=== PATIENT | male | born 1930 | race Caucasian/White ===

== ENCOUNTER 2017-04-05 12:37 | Inpatient (IN) ==
--- NOTE | 2017-04-05 13:01 | Emergency Department Note ---
Disposition Clinical Impression: UTI (urinary tract infection), Fever, Dizziness Disposition: Admitted As Inpatient Condition: Fair Referrals: Margaret Dumont MD [Primary Care Provider] - Time of Disposition: 15:14 Dizziness HPI - General Stated Complaint: Light Headed, Dizzy Time Seen by Provider: 04/05/17 12:52 Source: patient, family Mode of arrival: ambulatory Limitations: no limitations, age Nursing Notes Reviewed: Yes Vital Signs Reviewed: Yes - History of Present Illness HPI Narrative: Patient did not sleep very well also has been having fever chills aches all over patient states that he has had some dizziness today denies any blurred vision double vision denies any chest pain or chest pressure denies any wheezing he said normally he has respiratory problems but he says he does not feel like that states he has had no cough no congestion no numbness no tingling no weakness he just states that when he changes position. [place] denies diarrhea melena hematochezia or hematemesis does feel like his heart is racing Pt Subjective Complaint: dizziness Onset (ago): day(s) (1) Timing: gradual onset Description: "room spinning" History of similar episodes: No History of trauma: No Severity: mild Improves with: remaining still Worsens with: movement Associated symptoms: Reports: fever, chills, weakness, palpitations. Denies: ataxia, chest pain, confusion, diaphoresis, malaise, rash, shortness of breath, syncope, vision changes, nausea, vomiting - Related Data Home Medications Medication Instructions Recorded Confirmed Aspirin Enteric Coated [Aspirin EC] 81 mg PO DAILY 04/30/15 02/05/17 Simvastatin [Zocor] 40 mg PO HS 04/30/15 02/05/17 Albuterol Neb [Proventil Neb] 2.5 mg IH Q4HR PRN 04/05/17 04/05/17 Ipratropium/Albuterol Neb [Duoneb] 3 ml IH TID 04/05/17 04/05/17 Allergies Allergy/AdvReac Type Severity Reaction Status Date / Time No Known Allergies Allergy Verified 07/28/16 11:03 All systems ED: reviewed and negative except as stated. Review of Systems: As Per HPI Constitutional: Reports: fever, chills, weakness Eyes: Denies: eye pain ENT ED: Denies: ear pain, throat pain Cardiovascular: Denies: chest pain, palpitations Respiratory: Denies: cough, dyspnea, wheezes Gastrointestinal: Denies: abdominal pain, nausea, vomiting Genitourinary: Denies: urgency, dysuria, frequency Musculoskeletal: Denies: back pain Integumentary: Denies: rash, abrasion Neurological: Reports: weakness, vertigo. Denies: headache Psychiatric: Denies: anxiety Endocrine: Denies: fatigue Hematological/Lymphatic: Denies: easy bleeding Allergic/Immunologic: Denies: facial swelling Past Medical History - Past Medical History Attestation: Yes The following information was validated with the patient. 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), COPD, hyperlipidemia Psychiatric history: Reports: no psych history - Social History Smoking Status: Current every day smoker Smokeless Tobacco Status: No (PT HAS SMOKED X70 YEARS) Alcohol use: Reports: none Drug use: Reports: none Physical Exam - General Limitations: no limitations General appearance: alert, in no apparent distress, other (appears to be chilling) - Head Head exam: atraumatic, normocephalic, normal inspection - Eye Eye exam: Present: normal appearance, PERRL, EOMI - ENT ENT exam: normal exam, normal oropharynx, mucous membranes moist - Neck Neck exam: Present: normal inspection, full ROM, trachea midline - Chest Chest inspection: Present: normal inspection, symmetric chest wall rise - Respiratory Respiratory exam: Present: normal lung sounds bilaterally - Cardiovascular Cardiovascular exam: Present: regular rate, normal rhythm, normal heart sounds - Abdominal Exam Abdominal exam: Present: soft, Non-Tender, normal bowel sounds. Absent: mass, pulsatile mass - Expanded Upper Extremity Exam Shoulder exam: Present: normal inspection, full ROM Arm exam: Present: normal inspection, full ROM Elbow exam: Present: normal inspection, full ROM Forearm/Wrist exam: Present: normal inspection, full ROM Hand exam: Present: normal inspection, full ROM Neurosensory exam: Normal: radial nerve, ulnar nerve, median nerve Vascular exam: Normal: capillary refill, radial pulse, ulnar pulse - Expanded Lower Extremity Exam Hip/Pelvis exam: Present: normal inspection, full ROM Upper leg exam: Present: normal inspection, full ROM Knee exam: Present: normal inspection, full ROM Lower leg exam: Present: normal inspection, full ROM Ankle exam: Present: normal inspection, full ROM Foot/toe exam: Present: normal inspection, full ROM Neurovascular/Tendon exam: Present: normal capillary refill, normal fine/light touch. Absent: motor deficit, sensory deficit, tendon deficit Gait: observed and normal - Back Exam Back exam: Present: normal inspection, full ROM. Absent: muscle spasm - Neurological Exam Neurological exam: Present: alert, oriented X3, CN II-XII intact - Psychiatric Psychiatric exam: Present: normal affect, normal mood - Skin Skin exam: Present: warm, dry, intact, normal color Course Course Narrative: Patient was seen and examined the patient had laboratory data workup for vertiginous-type presentation but during the workup appears he has something viral in etiology urinalysis shows [place] underlying UTI recommend admission awaiting discussion with hospitalist for admission - Reevaluation(s) Reevaluation #1: Local doctor Ingrid in regards to the findings we will go ahead and treat him patient is admitted we will place him on telemetry and also place him on Levaquin Dizziness - MDM Narrative Medical decision making narrative: Sepsis infection bacterial versus viral pulmonary versus genitourinary versus gastrointestinal - Differential Diagnosis Likely: vertebral basilar insufficiency - Medical Records Medical records reviewed: Yes I reviewed the patient's medical records. - Lab Data Lab results reviewed: Yes I reviewed the patient's lab results. - Radiology Data Radiology results reviewed: Yes I reviewed the patient's radiology results. ITS Impressions Chest X-Ray 04/05/17 12:53 IMPRESSION: Advanced COPD and chronic interstitial change with no acute finding. D/ / Lazaro Calhoun MD / Lazaro Calhoun MD Interpreting Provider: Lazaro Calhoun MD Head CT 04/05/17 12:53 IMPRESSION: No acute intracranial abnormality. D/ / Lazaro Calhoun MD / Lazaro Calhoun MD Interpreting Provider: Lazaro Calhoun MD - EKG Data EKG attestation: Yes I reviewed and interpreted this EKG. EKG results narrative: Sinus tach incomplete bundle branch rate 118 MA 156 QRS 98 QT to 98 axis -75 Critical Care Time Critical Care Time: Yes Total Critical Care Time: 35 Attestation: Critical care performed:20mins due to heartrate fever and dizziness to r/ ocvaandsepsis discussion with family and hospitalist for admission Dr Dumont Time is exclusive of separately billable procedures. Time includes: direct patient care, patient reassessment, coordination of patient care, interpretation of data (laboratory data, radiology data, and respiratory data), review of patient's medical records, medical consultation and documentation of patient care. Procedures included in critical care time: Procedures excluded from critical care time:
[2017-04-05 13:38] LABS: Basophils % 0.2 %; Eosinophils % 0.5 %; Hematocrit 35.4 % (37.5-50.1); Hemoglobin 12.4 g/dL (12.9-16.9); Immature Granulocytes % 1.2 % (0-4); Lymphocytes # 0.9 K/mcL (0.6-4.6); Lymphocytes % 20.9 %; Mean Corpuscular Hemoglobin 36.2 pg (28.0-33.3); Mean Corpuscular Volume 103.2 fL (83.0-100.0); Mean Platelet Volume 9.2 fL (9.4-12.4); Monocytes # 0.2 K/mcL (0.0-1.3); Monocytes % 5.6 %; Neutrophils # 3.1 K/mcL (1.6-8.9); Red Blood Count 3.43 M/mcL (4.19-5.50); Red Cell Distribution Width 14.2 % (11.5-14.5); Segmented Neutrophils % 71.6 %
[2017-04-05 13:44] LABS: Platelet Count 83 K/mcL (140-400)
[2017-04-05 13:53] LABS: INR 1.1; Platelet Estimate Decreased (Normal); Prothrombin Time 11.6 Seconds (9.4-12.1); Reactive Lymphocytes Present (Not Present)
[2017-04-05 13:54] LABS: BUN/Creatinine Ratio 14 (6-26); Blood Urea Nitrogen 17 mg/dL (8-26); Calcium 9.5 mg/dL (8.6-10.8); Carbon Dioxide 23 mEq/L (19-29); Chloride 104 mEq/L (98-109); Glucose 98 mg/dL (70-99); Osmolality,Calculated 286 (280-300); Potassium 4.5 mEq/L (3.5-4.5); Sodium 137 mEq/L (136-145); eGFR For African Americans > 60 (> 60); eGFR For Non-African Americans 58 (> 60)
[2017-04-05 13:55] LABS: Activated Partial Thrombo Time 29.3 Seconds (26.0-36.0)
[2017-04-05 14:34] LABS: Bilirubin,Urine Negative (Negative); Blood,Urine Trace-intact (Negative); Clarity,Urine Clear (Clear); Color,Urine Yellow (Yellow); Glucose,Urine (UA) Normal (Normal); Ketones,Urine Trace mg/dL (Negative); Leukocyte Esterase,Urine Trace (Negative); Nitrite,Urine Negative (Negative); PH,Urine 6.5 pH Units (5.0-8.0); Protein,Urine Trace mg/dL (Neg-Trace); Urobilinogen,Urine Normal (Normal)
[2017-04-05 15:14] LABS: Bacteria,Urine Few per hpf (None-Few); RBC,Urine 0-3 per hpf (0-3); Squamous Epithelial Cell,Urine Few per lpf (None-Few); WBC,Urine 0-3 per hpf (0-3)
[2017-04-05] MEDS ORDERED: Acetaminophen 325 MG TABLET PO ONE (15:14)
[2017-04-05] MEDS ORDERED: Ibuprofen 400 MG TABLET PO PRN (17:30)
[2017-04-05] MEDS ORDERED: 0.9 % Sodium Chloride 1,000 ML IVC SCH (17:30)
[2017-04-05] MEDS ORDERED: Naloxone 0.4 MG/ML INJ IVP PRN (17:30)
[2017-04-05] MEDS ORDERED: Albuterol 2.5 MG/3 ML NEBULIZER IH PRN (17:30)
[2017-04-05] MEDS: Levofloxacin 500 MG/100 ML 500 MG/100 ML BAG IVPB SCH (18:05)
--- NOTE | 2017-04-05 18:10 | Internal Med History&Physical ---
Date of Encounter: 04/06/17 Time of Encounter: 19:42 Assessment and Plan (1) UTI (urinary tract infection) Current visit: Yes Status: Acute levaquin, ivf, urine cultures and blood cultures Qualifiers: Urinary tract infection type: acute cystitis Hematuria presence: with hematuria Qualified Code(s): N30.01 - Acute cystitis with hematuria (2) Thrombocytopenia Current visit: Yes Status: Acute will follow no active bleeding will repeat in am (3) Vitamin D deficiency Current visit: Yes Status: Acute will repeat with am labs. he has not been seen in the office since 12/2015 (4) Macular degeneration Current visit: Yes Status: Acute (5) Osteoporosis Current visit: Yes Status: Acute Qualifiers: Osteoporosis type: unspecified Presence of current pathological fracture: without current pathological fracture Qualified Code(s): M81.0 - Age-related osteoporosis without current pathological fracture (6) Laryngeal cancer Current visit: No Status: Resolved in the past not an active problem (7) Cancer of left lung Current visit: No Status: Chronic s/p chemo and radiation. not active problem Qualifiers: Lung location: unspecified part of lung Qualified Code(s): C34.92 - Malignant neoplasm of unspecified part of left bronchus or lung (8) Smoker Current visit: Yes Status: Acute cessation discussed (9) COPD (chronic obstructive pulmonary disease) Current visit: No Status: Acute he has not taken his nebs in a while. he has home oxygen. will watch. smoking cessation would be beneficial to him discussed. He may benefit from steroids. He always has a prolonged expiratory phase and some wheezing but it is more pronounced today. Qualifiers: COPD type: unspecified COPD Qualified Code(s): J44.9 - Chronic obstructive pulmonary disease, unspecified (10) Fever Current visit: Yes Status: Acute likely due to the uti. await urine culture, levaquin Qualifiers: Fever type: unspecified Qualified Code(s): R50.9 - Fever, unspecified (11) Dizziness Current visit: Yes Status: Acute likely due to uti. will give ivf (12) DVT prophylaxis Current visit: Yes Status: Acute He is thrombocytopenic put in [place] hose. (13) Hypotension Current visit: Yes Status: Acute Blood cultures urine cultures are pending he is on Levaquin give IV fluid bolus. Continue IV fluids he is not on any blood pressure pills.discussed with him and his code status. he does not want intubation or cpr. discussed transfer to [place] with his tachycardia and hypotension he wants to stay here Qualifiers: Hypotension type: unspecified hypotension type Qualified Code(s): I95.9 - Hypotension, unspecified Internal Medicine - H&P: HPI Chief complaint: dizzy weak chills Admitted From: Home Plans for Post Hospital Care: Home History of present illness: Mr. Garces is a 87 year old male Who was admitted from home. He came into the emergency room 2 day history of fevers chills and off balance. 2 days ago he had some pain in his lower suprapubic area that has since resolved. He has been nauseated but has not had any emesis has not been eating or drinking well he also noted that he had double vision in his left eye that started 2 days ago. He is short of breath but he is always short of breath for the past year he has been coughing he has been coughing for the past year he has white sputum and that has been going on for the past year. 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.) - Social History Smoking Status: Current every day smoker Packs per day: 0.5 Smokeless Tobacco Status: No (PT HAS SMOKED X70 YEARS) Alcohol use: none Drug use: none - Family History Father Living Status: Hx Family Respiratory Disorders: Yes (copd) Mother Living Status: Age at : 100 Cause of : old age Brother Living Status: Hx Family Cardiac Disorders: Yes Internal Medicine - H&P: Meds Aspirin Enteric Coated [Aspirin EC] 81 mg PO DAILY 04/30/15 [History] Simvastatin [Zocor] 40 mg PO HS 04/30/15 [History] Albuterol Neb [Proventil Neb] 2.5 mg IH Q4HR PRN 04/05/17 [History] Ipratropium/Albuterol Neb [Duoneb] 3 ml IH TID 04/05/17 [History] 3 Allergy/AdvReac Type Severity Reaction Status Date / Time No Known Allergies Allergy Verified 07/28/16 11:03 All Systems PM: A 10-system review of systems was performed and is negative for pertinent findings except as documented above in the HPI. - Constitutional Constitutional: anorexia, chills, fatigue, fever(s), malaise, weakness ( Generalized) - EENT Eyes: diplopia (Left eye when he was looking at the television 2 nights ago) Nose, mouth and throat: no sore throat - Cardiovascular Cardiovascular ROS IM: lightheadedness, no chest pain, no palpitations - Respiratory Respiratory: cough (For over a year), dyspnea (For over a year), wheezing (For over a year), excessive phlegm production (White for over a year), no change in phlegm color - Gastrointestinal Gastrointestinal: abdominal pain (As per history of present illness), nausea, no change in bowel habits, no constipation (He has a normal stool daily), no diarrhea, no hematochezia, no melena, no vomiting - Genitourinary Genitourinary ROS male: no dysuria, no hematuria, no urinary frequency, no urinary incontinence, no urinary urgency - Musculoskeletal Musculoskeletal ROS IM: no myalgias, no numbness - Integumentary Integumentary IM: no pruritus, no rash - Neurological Neurological ROS: dizziness, no focal weakness, no frequent falls, no headache(s ), no numbness, no tingling - Constitutional Vitals: Temp Pulse Resp BP Pulse Ox 98.5 F 104 16 94/61 97 04/05/17 18:00 04/05/17 18:00 04/05/17 18:00 04/05/17 18:00 04/05/17 18:00 General appearance: Present: A&O X 3, pleasant, no acute distress, answers questions appropriately - Head Head exam: Present: atraumatic, normocephalic - Eye Eye exam: Present: EOMI, PERRL. Absent: nystagmus - Neck Neck exam general surgery: Present: supple, trachea midline - Respiratory Respiratory exam: Present: decreased breath sounds, prolonged expiratory phase, wheezes. Absent: accessory muscle use - Cardiovascular Cardiovascular exam: Present: tachycardia - GI/Abdominal GI/Abdominal exam: Present: soft, no peritoneal signs. Absent: distended, guarding, rebound, tenderness - Extremities Exam Extremities exam: Present: normal capillary refill, warm. Absent: mottling, pedal edema - Neurological Exam Neurological exam: Present: strengths equal and symetr throughout. Absent: facial droop, speech deficit (but hoarse, chronic) - Skin Skin exam: Present: dry, warm. Absent: erythema, rash Internal Med - H&P Results - Labs CBC & Chem 7: 04/06/17 05:20 04/06/17 05:20
--- NOTE | 2017-04-05 18:11 | Electrocardiograph Report ---
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
[2017-04-05] MEDS: Ipratropium/Albuterol Neb 3 ML IH SCH (18:13)
[2017-04-05] MEDS ORDERED: 0.9 % Sodium Chloride 1,000 ML IVC ONE ×3 (19:15→21:53)
[2017-04-05 20:03] LABS: Thyroid Stimulating Hormone 1.062 mcIU/mL (0.350-4.840)
[2017-04-05] MEDS: methylPREDNISolone 125 MG/2 ML VIAL IVP SCH (23:18)
[2017-04-05] MEDS: 0.9 % Sodium Chloride 1,000 ML IVC SCH (23:43)
[2017-04-06] MEDS: Ipratropium/Albuterol Neb 3 ML IH SCH ×3 (01:27→18:45)
[2017-04-06 05:39] LABS: Hematocrit 28.9 % (37.5-50.1); Immature Granulocytes % 1.2 % (0-4); Lymphocytes # 0.4 K/mcL (0.6-4.6); Mean Corpuscular HGB Conc 34.6 g/dL (31.6-35.5); Mean Corpuscular Hemoglobin 36.4 pg (28.0-33.3); Mean Corpuscular Volume 105.1 fL (83.0-100.0); Monocytes # 0.1 K/mcL (0.0-1.3); Monocytes % 1.5 %; Nucleated Red Blood Cells 0.6 /100 WBC (0); Red Blood Count 2.75 M/mcL (4.19-5.50); Red Cell Distribution Width 14.4 % (11.5-14.5); Segmented Neutrophils % 85.3 %
[2017-04-06 05:42] LABS: Neutrophils # 2.7 K/mcL (1.6-8.9); Platelet Count 61 K/mcL (140-400)
[2017-04-06 05:44] LABS: Platelet Estimate Slight Decrease (Normal)
[2017-04-06 05:49] LABS: BUN/Creatinine Ratio 17 (6-26); Blood Urea Nitrogen 18 mg/dL (8-26); Calcium 8.1 mg/dL (8.6-10.8); Carbon Dioxide 16 mEq/L (19-29); Chloride 111 mEq/L (98-109); Glucose 134 mg/dL (70-99); Osmolality,Calculated 286 (280-300); Potassium 4.5 mEq/L (3.5-4.5); Sodium 136 mEq/L (136-145); eGFR For African Americans > 60 (> 60); eGFR For Non-African Americans > 60 (> 60)
[2017-04-06] MEDS: 0.9 % Sodium Chloride 1,000 ML IVC SCH ×3 (06:31→21:31)
[2017-04-06] MEDS: Aspirin Enteric Coated 81 MG Tablet PO SCH (08:08)
[2017-04-06] MEDS: methylPREDNISolone 125 MG/2 ML VIAL IVP SCH ×3 (08:08→23:37)
--- NOTE | 2017-04-06 11:05 | Internal Med Progress Note ---
Date of Encounter: 04/06/17 Time of Encounter: 11:05 - Assessment and plan (1) UTI (urinary tract infection) Current Visit: Yes Status: Acute Assessment and plan: on levaquin blood and urine culutres pending. had fever Qualifiers: Urinary tract infection type: acute cystitis Hematuria presence: with hematuria Qualified Code(s): N30.01 - Acute cystitis with hematuria (2) Thrombocytopenia Current Visit: Yes Status: Acute Assessment and plan: decreased again today will continue to follow no active bleeding (3) Vitamin D deficiency Current Visit: Yes Status: Acute (4) Macular degeneration Current Visit: Yes Status: Acute (5) Osteoporosis Current Visit: Yes Status: Acute Qualifiers: Osteoporosis type: unspecified Presence of current pathological fracture: without current pathological fracture Qualified Code(s): M81.0 - Age-related osteoporosis without current pathological fracture (6) Laryngeal cancer Current Visit: No Status: Resolved Assessment and plan: not active this admission (7) Cancer of left lung Current Visit: No Status: Chronic Assessment and plan: not active problem this admission Qualifiers: Lung location: unspecified part of lung Qualified Code(s): C34.92 - Malignant neoplasm of unspecified part of left bronchus or lung (8) Smoker Current Visit: Yes Status: Acute Assessment and plan: cessation discussed (9) COPD (chronic obstructive pulmonary disease) Current Visit: No Status: Acute Assessment and plan: he is on oxygen, solumedrol, duonbebs, levaquin Qualifiers: COPD type: unspecified COPD Qualified Code(s): J44.9 - Chronic obstructive pulmonary disease, unspecified (10) Fever Current Visit: Yes Status: Acute Assessment and plan: likely due to uti. on levaquin cultures pending Qualifiers: Fever type: unspecified Qualified Code(s): R50.9 - Fever, unspecified (11) Dizziness Current Visit: Yes Status: Acute Assessment and plan: improving with the ivf (12) DVT prophylaxis Current Visit: Yes Status: Acute Assessment and plan: devin hose and ambulation since he has thrombocytopenia (13) Hypotension Current Visit: Yes Status: Acute Assessment and plan: better with the ivf Qualifiers: Hypotension type: unspecified hypotension type Qualified Code(s): I95.9 - Hypotension, unspecified - Subjective Interval history: he got hypotensive last night. he had 2 liter bolus. and then 150 mg /hour. his bp is up but his heart will get high still. he feels better, less dizzy. heart does not feel like it is racing. no chest pain. he is sob but always is sob. no abd pain, no nausea. he ate breakfast. he is tired and weak. no pain - Constitutional Vitals: Temp Pulse Resp BP Pulse Ox 98.4 F 90 16 124/74 94 04/06/17 07:00 04/06/17 07:00 04/06/17 07:00 04/06/17 07:00 04/06/17 07:00 General appearance: Present: A&O X 3, pleasant, no acute distress, answers questions appropriately - Head Head exam: Present: atraumatic, normocephalic - Neck Neck exam general surgery: Present: supple, trachea midline. Absent: lymphadenopathy, tenderness - Respiratory Respiratory exam: Present: decreased breath sounds (at bases), wheezes (but improved from yesterday) - Cardiovascular Cardiovascular exam: Present: tachycardia - GI/Abdominal GI/Abdominal exam: Present: normal bowel sounds, soft, no peritoneal signs. Absent: guarding, mass, rebound, tenderness - Extremities Exam Extremities exam: Present: normal capillary refill. Absent: mottling, pedal edema - Skin Skin exam: Present: dry, warm Internal Medicine: Result - Labs CBC & Chem 7: 04/06/17 05:20 04/06/17 05:20 Labs: Short CBC 04/06/17 Range/Units 05:20 WBC 3.2 L (4.3-11.1) K/mcL Hgb 10.0 L D (12.9-16.9) g/dL Hct 28.9 L (37.5-50.1) % Plt Count 61 L (140-400) K/mcL Neutrophils # 2.7 (1.6-8.9) K/mcL BMP 04/06/17 05:20 Sodium 136 Potassium 4.5 Chloride 111 H Carbon Dioxide 16 L BUN 18 Creatinine 1.03 Glucose 134 H Calcium 8.1 L - ABG Interpretation ABG results: PT/INR, D-dimer PT 11.6 Seconds (9.4-12.1) 04/05/17 13:25 - VTE Documentation of Mechanical Device: Graduated compression elastic hosiery Consult Discharge Plan - Plan Referrals: Margaret Dumont MD [Primary Care Provider] -
[2017-04-06] MEDS: Acetaminophen 325 MG TABLET PO PRN (15:15)
[2017-04-06] MEDS: Levofloxacin 500 MG/100 ML 500 MG/100 ML BAG IVPB SCH (16:42)
[2017-04-07 01:21] LABS: Basophils % 0.1 %; Hematocrit 32.3 % (37.5-50.1); Hemoglobin 11.1 g/dL (12.9-16.9); Immature Granulocytes % 1.2 % (0-4); Lymphocytes # 0.5 K/mcL (0.6-4.6); Lymphocytes % 6.2 %; Mean Corpuscular HGB Conc 34.4 g/dL (31.6-35.5); Mean Corpuscular Hemoglobin 35.6 pg (28.0-33.3); Mean Corpuscular Volume 103.5 fL (83.0-100.0); Mean Platelet Volume 9.7 fL (9.4-12.4); Monocytes # 0.2 K/mcL (0.0-1.3); Monocytes % 2.2 %; Neutrophils # 7.2 K/mcL (1.6-8.9); Red Blood Count 3.12 M/mcL (4.19-5.50); Red Cell Distribution Width 14.5 % (11.5-14.5); Segmented Neutrophils % 90.3 %
[2017-04-07 01:22] LABS: Platelet Count 59 K/mcL (140-400)
[2017-04-07 01:23] LABS: Platelet Estimate Slight Decrease (Normal)
[2017-04-07 01:35] LABS: BUN/Creatinine Ratio 23 (6-26); Blood Urea Nitrogen 22 mg/dL (8-26); Calcium 8.5 mg/dL (8.6-10.8); Carbon Dioxide 17 mEq/L (19-29); Chloride 110 mEq/L (98-109); Glucose 144 mg/dL (70-99); Osmolality,Calculated 292 (280-300); Potassium 4.3 mEq/L (3.5-4.5); Sodium 138 mEq/L (136-145); eGFR For African Americans > 60 (> 60); eGFR For Non-African Americans > 60 (> 60)
[2017-04-07 01:47] LABS: Calcium 8.6 mg/dL (8.6-10.8); Phosphorous 2.1 mg/dL (2.3-4.7)
[2017-04-07 01:49] LABS: Magnesium 1.7 mg/dL (1.6-2.6)
[2017-04-07] MEDS: Acetaminophen 325 MG TABLET PO PRN ×2 (03:15→21:14)
[2017-04-07] MEDS: Ipratropium/Albuterol Neb 3 ML IH SCH ×3 (03:28→17:21)
--- NOTE | 2017-04-07 08:09 | Internal Med Progress Note ---
Date of Encounter: 04/07/17 Time of Encounter: 08:09 - Assessment and plan (1) UTI (urinary tract infection) Current Visit: Yes Status: Acute Assessment and plan: urine culture negative. his fever has resolved. Qualifiers: Urinary tract infection type: acute cystitis Hematuria presence: with hematuria Qualified Code(s): N30.01 - Acute cystitis with hematuria (2) Thrombocytopenia Current Visit: Yes Status: Acute Assessment and plan: decreased again today will continue to follow no active bleeding (3) Vitamin D deficiency Current Visit: Yes Status: Acute (4) Macular degeneration Current Visit: Yes Status: Acute (5) Osteoporosis Current Visit: Yes Status: Acute Qualifiers: Osteoporosis type: unspecified Presence of current pathological fracture: without current pathological fracture Qualified Code(s): M81.0 - Age-related osteoporosis without current pathological fracture (6) Laryngeal cancer Current Visit: No Status: Resolved Assessment and plan: not active this admission (7) Cancer of left lung Current Visit: No Status: Chronic Assessment and plan: not active problem this admission Qualifiers: Lung location: unspecified part of lung Qualified Code(s): C34.92 - Malignant neoplasm of unspecified part of left bronchus or lung (8) Smoker Current Visit: Yes Status: Acute (9) COPD (chronic obstructive pulmonary disease) Current Visit: No Status: Acute Assessment and plan: he is on oxygen, solumedrol, duonbebs, levaquin. his breathing is better. exam has improved. will continue with the current treatment Qualifiers: COPD type: unspecified COPD Qualified Code(s): J44.9 - Chronic obstructive pulmonary disease, unspecified (10) Fever Current Visit: Yes Status: Acute Assessment and plan: has resolved cultures are negative Qualifiers: Fever type: unspecified Qualified Code(s): R50.9 - Fever, unspecified (11) Dizziness Current Visit: Yes Status: Acute Assessment and plan: improving with the ivf (12) DVT prophylaxis Current Visit: Yes Status: Acute Assessment and plan: devin hose and ambulation since he has thrombocytopenia. hard to ambulate since he becomes so tachycardiac with ambulation (13) Hypotension Current Visit: Yes Status: Acute Assessment and plan: better with the ivf Qualifiers: Hypotension type: unspecified hypotension type Qualified Code(s): I95.9 - Hypotension, unspecified (14) PAT (paroxysmal atrial tachycardia) Current Visit: Yes Status: Acute Assessment and plan: spoke with [facility]. will add metoprolol tartate for rate control. hopefully his blood pressures will stay in range. - Subjective Interval history: last night his heart rate got up to to the 170s. he did not feel it racing or have cp. he got up to use the urinal and his heart rate went high. got and ekg that showed PAT. ER physician samantha came to look at the ekg and he was back in sinus tach with a rate aroun 109. he did not get any medication. bp was low to normal. he was not diaphoretic. he was sob at the time. he was not dizzy. he feels better this am. no n.v. no pain. - Constitutional Vitals: Temp Pulse Resp BP Pulse Ox 99.1 F 95 22 118/79 94 04/07/17 04:00 04/07/17 04:00 04/07/17 04:00 04/07/17 04:00 04/07/17 04:00 General appearance: Present: A&O X 3, pleasant, no acute distress, answers questions appropriately - Head Head exam: Present: atraumatic, normocephalic - Neck Neck exam general surgery: Present: supple, trachea midline. Absent: lymphadenopathy - Respiratory Respiratory exam: Present: prolonged expiratory phase, wheezes (but improved) - Cardiovascular Cardiovascular exam: Present: tachycardia - GI/Abdominal GI/Abdominal exam: Present: normal bowel sounds, soft, no peritoneal signs. Absent: guarding, mass, rebound, tenderness - Extremities Exam Extremities exam: Present: normal capillary refill, warm. Absent: pedal edema - Skin Skin exam: Present: dry, warm Internal Medicine: Result - Labs CBC & Chem 7: 04/07/17 01:10 04/07/17 01:10 Labs: Short CBC 04/07/17 Range/Units 01:10 WBC 8.0 D (4.3-11.1) K/mcL Hgb 11.1 L (12.9-16.9) g/dL Hct 32.3 L (37.5-50.1) % Plt Count 59 L (140-400) K/mcL Neutrophils # 7.2 (1.6-8.9) K/mcL BMP 04/07/17 04/07/17 01:10 01:10 Sodium 138 Potassium 4.3 Chloride 110 H Carbon Dioxide 17 L BUN 22 Creatinine 0.94 Glucose 144 H Calcium 8.5 L 8.6 Cardiac Enzymes 04/07/17 04/07/17 Range/Units 01:10 07:30 Troponin I 0.03 0.04 H* (0-0.03) ng/mL - ABG Interpretation ABG results: PT/INR, D-dimer PT 11.6 Seconds (9.4-12.1) 04/05/17 13:25 - VTE Documentation of Mechanical Device: Graduated compression elastic hosiery Consult Discharge Plan - Plan Referrals: Margaret Dumont MD [Primary Care Provider] -
[2017-04-07] MEDS: methylPREDNISolone 125 MG/2 ML VIAL IVP SCH ×2 (08:20→17:20)
[2017-04-07] MEDS: Aspirin Enteric Coated 81 MG Tablet PO SCH (08:21)
[2017-04-07] MEDS: 0.9 % Sodium Chloride 1,000 ML IVC SCH ×2 (10:30→11:49)
[2017-04-07 11:16] LABS: Thyroid Stimulating Hormone 0.651 mcIU/mL (0.350-4.840)
[2017-04-07] MEDS ORDERED: Levalbuterol Neb 0.63 MG/3 ML IH PRN (16:59)
[2017-04-07] MEDS: Levofloxacin 250 MG/50 ML 250 MG/50 ML BAG IVPB SCH (17:21)
[2017-04-08] MEDS: methylPREDNISolone 125 MG/2 ML VIAL IVP SCH ×3 (00:50→18:16)
[2017-04-08] MEDS: Ipratropium/Albuterol Neb 3 ML IH SCH ×3 (00:51→18:17)
[2017-04-08 06:31] LABS: Basophils % 0.1 %; Hematocrit 30.1 % (37.5-50.1); Hemoglobin 10.8 g/dL (12.9-16.9); Immature Granulocytes % 1.4 % (0-4); Lymphocytes # 0.3 K/mcL (0.6-4.6); Lymphocytes % 3.3 %; Mean Corpuscular HGB Conc 35.9 g/dL (31.6-35.5); Mean Corpuscular Volume 103.1 fL (83.0-100.0); Mean Platelet Volume 9.6 fL (9.4-12.4); Monocytes # 0.3 K/mcL (0.0-1.3); Monocytes % 2.9 %; Neutrophils # 9.2 K/mcL (1.6-8.9); Red Blood Count 2.92 M/mcL (4.19-5.50); Red Cell Distribution Width 14.6 % (11.5-14.5); Segmented Neutrophils % 92.3 %
[2017-04-08 06:32] LABS: Platelet Count 49 K/mcL (140-400)
[2017-04-08 06:57] LABS: BUN/Creatinine Ratio 27 (6-26); Blood Urea Nitrogen 21 mg/dL (8-26); Calcium 8.3 mg/dL (8.6-10.8); Carbon Dioxide 23 mEq/L (19-29); Chloride 107 mEq/L (98-109); Glucose 144 mg/dL (70-99); Osmolality,Calculated 294 (280-300); Platelet Estimate Marked Decrease (Normal); Potassium 3.1 mEq/L (3.5-4.5); Sodium 139 mEq/L (136-145); eGFR For African Americans > 60 (> 60); eGFR For Non-African Americans > 60 (> 60)
[2017-04-08 06:58] LABS: Macrocytosis Present (Not Present)
[2017-04-08] MEDS: Aspirin Enteric Coated 81 MG Tablet PO SCH (08:38)
--- NOTE | 2017-04-08 12:04 | Electrocardiograph Report ---
[place] [id number] Test Date: 2017-04-07 Pat Name: Robert Garces Department: 2001 Room: 114 Gender: M Automatic Toe Laster: Diana : 1930 Requested By: Margaret Dumont Order Number: [id number] Reading MD: Issac Christianson Measurements Intervals [place] Rate: 168 P: MT: 0 QRS: -66 QRSD: 97 T: 91 QT: 277 QTc: 368 Interpretive Statements ATRIAL FIBRILLATION WITH RAPID VENTRICULAR RESPONSE MARKED LEFT AXIS DEVIATION INCOMPLETE RIGHT BUNDLE BRANCH BLOCK Electronically Signed On 04-08-2017 12:02:40 EDT by Issac Christianson
--- NOTE | 2017-04-08 14:32 | Internal Med Progress Note ---
Date of Encounter: 04/09/17 Time of Encounter: 08:15 - Assessment and plan (1) UTI (urinary tract infection) Current Visit: Yes Status: Acute Assessment and plan: urine culture negative. blood culture negative. he did have a fever again last pm. Qualifiers: Urinary tract infection type: acute cystitis Hematuria presence: with hematuria Qualified Code(s): N30.01 - Acute cystitis with hematuria (2) Thrombocytopenia Current Visit: Yes Status: Acute Assessment and plan: decreased again today will continue to follow no active bleeding (3) Vitamin D deficiency Current Visit: Yes Status: Acute (4) Macular degeneration Current Visit: Yes Status: Acute (5) Osteoporosis Current Visit: Yes Status: Acute Qualifiers: Osteoporosis type: unspecified Presence of current pathological fracture: without current pathological fracture Qualified Code(s): M81.0 - Age-related osteoporosis without current pathological fracture (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 his breathing is better. exam has improved. will continue with the current treatment. Qualifiers: COPD type: unspecified COPD Qualified Code(s): J44.9 - Chronic obstructive pulmonary disease, unspecified (10) Fever Current Visit: Yes Status: Acute Assessment and plan: fever again yesterday Qualifiers: Fever type: unspecified Qualified Code(s): R50.9 - Fever, unspecified (11) Dizziness Current Visit: Yes Status: Acute Assessment and plan: improved (12) DVT prophylaxis Current Visit: Yes Status: Acute Assessment and plan: devin hose and ambulation since he has thrombocytopenia. will ambulate to today (13) Hypotension Current Visit: Yes Status: Acute Assessment and plan: better with the ivf. saline welled now. still in range with adding the metoprolol for the PAT Qualifiers: Hypotension type: unspecified hypotension type Qualified Code(s): I95.9 - Hypotension, unspecified (14) PAT (paroxysmal atrial tachycardia) Current Visit: Yes Status: Acute Assessment and plan: spoke with Moise. added metoprolol tartate for rate control. hopefully his blood pressures will stay in range. have been so far. echo normal ef, mod TR. continue with tele. will have him ambulate today and see what his heart rate does - Subjective Interval history: last night was better. he feels better this morning and looks better. eating breakfast. no cp no palp. has not really been up. will get up today. no n/ v. still sob, no cp no palp. - Constitutional Vitals: Temp Pulse Resp BP Pulse Ox 97.8 F 107 20 106/64 91 04/08/17 11:51 04/08/17 11:51 04/08/17 11:51 04/08/17 11:51 04/08/17 11:51 General appearance: Present: A&O X 3, pleasant, no acute distress, answers questions appropriately - Head Head exam: Present: atraumatic, normocephalic - Neck Neck exam general surgery: Present: supple, trachea midline. Absent: lymphadenopathy - Respiratory Respiratory exam: Present: decreased breath sounds, prolonged expiratory phase, wheezes (but much improved) - Cardiovascular Cardiovascular exam: Present: tachycardia - GI/Abdominal GI/Abdominal exam: Present: normal bowel sounds, soft, no peritoneal signs. Absent: guarding, mass, tenderness - Extremities Exam Extremities exam: Present: normal capillary refill, warm. Absent: pedal edema ( devin hose on) - Skin Skin exam: Present: dry, warm. Absent: rash Internal Medicine: Result - Labs CBC & Chem 7: 04/08/17 06:24 04/08/17 06:24 Labs: Short CBC 04/08/17 Range/Units 06:24 WBC 10.0 (4.3-11.1) K/mcL Hgb 10.8 L (12.9-16.9) g/dL Hct 30.1 L (37.5-50.1) % Plt Count 49 L (140-400) K/mcL Neutrophils # 9.2 H (1.6-8.9) K/mcL BMP 04/08/17 06:24 Sodium 139 Potassium 3.1 L D Chloride 107 Carbon Dioxide 23 BUN 21 Creatinine 0.79 Glucose 144 H Calcium 8.3 L Cardiac Enzymes 04/08/17 Range/Units 06:24 Troponin I 0.02 (0-0.03) ng/mL - ABG Interpretation ABG results: PT/INR, D-dimer PT 11.6 Seconds (9.4-12.1) 04/05/17 13:25 - VTE Documentation of Mechanical Device: Graduated compression elastic hosiery Consult Discharge Plan - Plan Referrals: Margaret Dumont MD [Primary Care Provider] -
[2017-04-08] MEDS: Levofloxacin 250 MG/50 ML 250 MG/50 ML BAG IVPB SCH (18:16)
[2017-04-09] MEDS: Ipratropium/Albuterol Neb 3 ML IH SCH ×3 (01:11→16:34)
[2017-04-09] MEDS: Acetaminophen 325 MG TABLET PO PRN (01:11)
[2017-04-09] MEDS: methylPREDNISolone 125 MG/2 ML VIAL IVP SCH ×4 (01:12→23:51)
--- NOTE | 2017-04-09 08:23 | Internal Med Progress Note ---
Date of Encounter: 04/09/17 Time of Encounter: 08:22 - Assessment and plan (1) Abdominal pain Current Visit: Yes Status: Acute Assessment and plan: withe fever, abd pain will get ct abd pelvis. could be abscess, diverticulitis. he is currently on levaquin Qualifiers: Abdominal location: left lower quadrant Qualified Code(s): R10.32 - Left lower quadrant pain (2) PAT (paroxysmal atrial tachycardia) Current Visit: Yes Status: Acute Assessment and plan: spoke with Moise. added metoprolol tartate for rate control on 04/07/17. echo normal ef, mod TR. continue with tele. last night his had 4 min of tachycardia to 170. woke him up an d back to the 90 before ekg could be obtained. will increase metoprolol,. he is not stable for stopping cardiac monitoring or going home until his rate is under control (3) COPD (chronic obstructive pulmonary disease) Current Visit: No Status: Acute Assessment and plan: he is on oxygen, solumedrol, duonbebs, levaquin. his breathing is better. exam has improved. will continue with the current treatment. Qualifiers: COPD type: unspecified COPD Qualified Code(s): J44.9 - Chronic obstructive pulmonary disease, unspecified (4) UTI (urinary tract infection) Current Visit: Yes Status: Ruled-out Assessment and plan: urine culture negative. blood culture negative. . Qualifiers: Urinary tract infection type: acute cystitis Hematuria presence: with hematuria Qualified Code(s): N30.01 - Acute cystitis with hematuria (5) Thrombocytopenia Current Visit: Yes Status: Acute Assessment and plan: decreased again today will continue to follow no active bleeding. discussed he will need to follow with oncology for the thrombocytopenia. he has a follow up on the lung cancer in April (6) Vitamin D deficiency Current Visit: Yes Status: Acute (7) Macular degeneration Current Visit: Yes Status: Acute (8) Osteoporosis Current Visit: Yes Status: Acute Qualifiers: Osteoporosis type: unspecified Presence of current pathological fracture: without current pathological fracture Qualified Code(s): M81.0 - Age-related osteoporosis without current pathological fracture (9) Cancer of left lung Current Visit: No Status: Chronic Assessment and plan: not active problem this admission Qualifiers: Lung location: unspecified part of lung Qualified Code(s): C34.92 - Malignant neoplasm of unspecified part of left bronchus or lung (10) Smoker Current Visit: Yes Status: Acute (11) Fever Current Visit: Yes Status: Acute Assessment and plan: last fever was 04/07 Qualifiers: Fever type: unspecified Qualified Code(s): R50.9 - Fever, unspecified (12) Dizziness Current Visit: Yes Status: Acute Assessment and plan: improved. but will consult pt/ot. he is a fall risk with the dizzy and tachycardia (13) DVT prophylaxis Current Visit: Yes Status: Acute (14) Hypotension Current Visit: Yes Status: Acute Assessment and plan: better with the ivf. saline welled now. still in range with adding the metoprolol for the PAT, but increasing the dose today with last nights episode of tachycardia to 170 Qualifiers: Hypotension type: unspecified hypotension type Qualified Code(s): I95.9 - Hypotension, unspecified (15) Muscular deconditioning Current Visit: Yes Status: Acute Assessment and plan: will consult pt/ot. he is not safe to go home. will eval for swing once cardiac status cleared (16) COPD exacerbation Current Visit: Yes Status: Acute Assessment and plan: solumedrol, duonebs, oxygen, levaquin. - Subjective Interval history: last nighthe had another episode of heart rate up to 170s. he was asleep. staff went in to wake him and it stopped. episode lasted <4 min and he was asleep. tele showed hr of 179. he is having lower abd pain today. hurts to move. he is tired, but sitting up in the chair today. dizzy is better. no palp, no cp. he is still sob but closer to baseline. no emesis - Constitutional Vitals: Temp Pulse Resp BP Pulse Ox 98.2 F 98 18 132/73 92 04/09/17 07:34 04/09/17 07:34 04/09/17 07:34 04/09/17 07:34 04/09/17 07:34 General appearance: Present: A&O X 3, pleasant, no acute distress, answers questions appropriately - Head Head exam: Present: atraumatic, normocephalic - Neck Neck exam general surgery: Present: lymphadenopathy, supple, trachea midline - Respiratory Respiratory exam: Present: decreased breath sounds (but improved), prolonged expiratory phase, wheezes - Cardiovascular Cardiovascular exam: Present: RRR - GI/Abdominal GI/Abdominal exam: Present: guarding, normal bowel sounds, tenderness ( suprapubic and llq). Absent: rebound - Extremities Exam Extremities exam: Present: normal capillary refill (of fingers devin hose in place bilateral), warm. Absent: pedal edema - Skin Skin exam: Present: dry, warm. Absent: rash Internal Medicine: Result - Labs CBC & Chem 7: 04/08/17 06:24 04/08/17 06:24 - ABG Interpretation ABG results: PT/INR, D-dimer PT 11.6 Seconds (9.4-12.1) 04/05/17 13:25 - VTE Documentation of Mechanical Device: Graduated compression elastic hosiery Consult Discharge Plan - Plan Referrals: Margaret Dumont MD [Primary Care Provider] -
[2017-04-09] MEDS: Aspirin Enteric Coated 81 MG Tablet PO SCH (09:24)
[2017-04-09] MEDS: Levofloxacin 250 MG/50 ML 250 MG/50 ML BAG IVPB SCH (16:33)
[2017-04-10] MEDS: Ipratropium/Albuterol Neb 3 ML IH SCH ×3 (01:42→18:08)
[2017-04-10 05:37] LABS: Basophils % 0.1 %; Hematocrit 31.5 % (37.5-50.1); Hemoglobin 11.3 g/dL (12.9-16.9); Immature Granulocytes % 1.4 % (0-4); Lymphocytes # 0.3 K/mcL (0.6-4.6); Lymphocytes % 4.6 %; Mean Corpuscular HGB Conc 35.9 g/dL (31.6-35.5); Mean Corpuscular Hemoglobin 36.6 pg (28.0-33.3); Mean Corpuscular Volume 101.9 fL (83.0-100.0); Mean Platelet Volume 10.2 fL (9.4-12.4); Monocytes # 0.2 K/mcL (0.0-1.3); Monocytes % 2.8 %; Neutrophils # 6.5 K/mcL (1.6-8.9); Red Blood Count 3.09 M/mcL (4.19-5.50); Red Cell Distribution Width 14.7 % (11.5-14.5); Segmented Neutrophils % 91.1 %
[2017-04-10 05:48] LABS: BUN/Creatinine Ratio 28 (6-26); Blood Urea Nitrogen 23 mg/dL (8-26); Calcium 8.1 mg/dL (8.6-10.8); Carbon Dioxide 26 mEq/L (19-29); Chloride 101 mEq/L (98-109); Glucose 125 mg/dL (70-99); Osmolality,Calculated 285 (280-300); Potassium 3.6 mEq/L (3.5-4.5); Sodium 135 mEq/L (136-145); eGFR For African Americans > 60 (> 60); eGFR For Non-African Americans > 60 (> 60)
[2017-04-10 05:53] LABS: Platelet Count 71 K/mcL (140-400)
[2017-04-10] MEDS: Aspirin Enteric Coated 81 MG Tablet PO SCH (08:46)
[2017-04-10] MEDS: methylPREDNISolone 125 MG/2 ML VIAL IVP SCH ×2 (08:46→18:07)
--- NOTE | 2017-04-10 12:49 | Internal Med Progress Note ---
Date of Encounter: 04/10/17 Time of Encounter: 12:48 - Assessment and plan (1) Hypotension Current Visit: Yes Status: Acute Assessment and plan: His hypotension is now resolved. Continue the same medication. He seems to be eating well and taking fluids. Qualifiers: Hypotension type: unspecified hypotension type Qualified Code(s): I95.9 - Hypotension, unspecified (2) Urinary retention Current Visit: Yes Status: Acute Assessment and plan: He appears to be having some urinary retention. Bladder was distended on CT scan. Percussion of bladder today shows distention up to 2 finger breadths below the umbilicus. We will monitor with post void scanning to get an idea of his average retention. We discussed options of intermittent catheterization, Kay catheterization long-term etc. (3) UTI (urinary tract infection) Current Visit: Yes Status: Ruled-out Assessment and plan: Cultures are negative. Qualifiers: Urinary tract infection type: acute cystitis Hematuria presence: with hematuria Qualified Code(s): N30.01 - Acute cystitis with hematuria (4) Thrombocytopenia Current Visit: Yes Status: Acute Assessment and plan: Thrombocytopenia has improved. Platelet count now up to 71,000. No active bleeding noted. (5) PAT (paroxysmal atrial tachycardia) Current Visit: Yes Status: Acute Assessment and plan: No further PAT. Heart rate in 90s to 100 range currently. Monitor strips through the night reviewed and no tachycardia. Continue same medication. (6) Abdominal pain Current Visit: Yes Status: Acute Assessment and plan: He states his abdominal pain is now much improved since his bowels are now moving. CT scan was reviewed from yesterday and nonfocal except for distended bladder. His bladder appears be distended on exam. We will do postvoid scanning to monitor Qualifiers: Abdominal location: left lower quadrant Qualified Code(s): R10.32 - Left lower quadrant pain (7) COPD exacerbation Current Visit: Yes Status: Acute Assessment and plan: His lungs show diminished breath sounds but no wheezing. Oxygen saturations are good. Air exchange is fair. Continue aggressive treatments. We will begin to taper the steroids from every 8 hours to every 12 hours. (8) Physical deconditioning Current Visit: Yes Status: Acute Assessment and plan: Continued with physical therapy. He was a bit unstable going from the chair to the bed as he plopped down onto the bed. He is not to be up alone. He will continue with therapy. He is getting stronger. (9) DVT prophylaxis Current Visit: Yes Status: Acute Assessment and plan: Due to his low platelet count his DVT prophylaxis is elastic stockings and frequent ambulation - Subjective Interval history: Patient states that he is feeling better. He denies any cardiac type chest pain. Denies any exacerbation of his breathing problems. He is wearing oxygen all of the time. While exercising in physical therapy his saturations will drop to the 80s temporarily. He does not have much of any cough now. He denies any fevers or chills. When getting in and out of bed he has low abdominal/suprapubic discomfort but seems better now that he is having normal bowel movements. No nausea or vomiting. He is eating well. He does have some urgency when he feels like it is time to urinate. He thinks he is emptying appropriately. - Constitutional Vitals: Temp Pulse Resp BP Pulse Ox 97.6 F 96 18 100/63 91 04/10/17 12:00 04/10/17 12:00 04/10/17 12:00 04/10/17 12:00 04/10/17 12:00 General appearance: Present: A&O X 3, pleasant, no acute distress, answers questions appropriately - Respiratory Additional comments: Diminished breath sounds throughout. No rales rhonchi or wheezes. No respiratory distress. - Cardiovascular Cardiovascular exam: Present: RRR, +S1, +S2, systolic murmur (1 to 2/6 systolic murmur at the outlet and left sternal border. Heart rate on monitor is 90s to 101 in normal rhythm) - GI/Abdominal GI/Abdominal exam: Present: soft. Absent: firm, guarding, hepatomegaly, tenderness, no peritoneal signs Additional comments: It appears that he has some bladder distention. He has dullness to percussion 2 fingerbreadths below the umbilicus. It is not particularly tight and he is not uncomfortable. - Extremities Exam Extremities exam: Absent: calf tenderness, pedal edema, tenderness Internal Medicine: Result - Labs CBC & Chem 7: 04/10/17 05:30 04/10/17 05:30 Labs: Short CBC 04/10/17 Range/Units 05:30 WBC 7.1 (4.3-11.1) K/mcL Hgb 11.3 L (12.9-16.9) g/dL Hct 31.5 L (37.5-50.1) % Plt Count 71 L (140-400) K/mcL Neutrophils # 6.5 (1.6-8.9) K/mcL BMP 04/10/17 05:30 Sodium 135 L Potassium 3.6 Chloride 101 Carbon Dioxide 26 BUN 23 Creatinine 0.82 Glucose 125 H Calcium 8.1 L Labs have been reviewed. White blood cell count is normal. Platelet count is much improved at 71,000. Electrolytes and renal function are basically stable or not remarkable - ABG Interpretation ABG results: PT/INR, D-dimer PT 11.6 Seconds (9.4-12.1) 04/05/17 13:25 - Impressions Impressions Abdomen/Pelvis CT 04/09/17 08:19 IMPRESSION: 1. Moderate distention of the urinary bladder presumably due to bladder outlet obstruction related to prostatic enlargement 2. Possible AVM of the urinary bladder 3. Nonobstructing bilateral nephrolithiasis 4. Colonic diverticulosis with no evidence of diverticulitis or bowel obstruction 5. Moderate bilateral pleural effusions and compressive atelectasis on a background of pulmonary emphysema D/ / Martínez Barragan MD / Martínez Barragan MD Interpreting Provider: Martínez Barragan MD - Diagnostic Studies CT scan - abdomen Additional comments: CT scan reviewed. Bladder distention. No other significant acute problem to account for his abdominal pain yesterday. - VTE Documentation of Mechanical Device: Graduated compression elastic hosiery Consult Discharge Plan - Plan Referrals: Margaret Dumont MD [Primary Care Provider] -
[2017-04-10] MEDS: Levofloxacin 250 MG/50 ML 250 MG/50 ML BAG IVPB SCH (18:08)
[2017-04-11] MEDS: Ipratropium/Albuterol Neb 3 ML IH SCH ×3 (02:28→18:02)
[2017-04-11 04:54] LABS: Basophils % 0.2 %; Eosinophils % 0.2 %; Hemoglobin 10.9 g/dL (12.9-16.9); Immature Granulocytes % 1.1 % (0-4); Lymphocytes # 0.4 K/mcL (0.6-4.6); Lymphocytes % 5.4 %; Mean Corpuscular HGB Conc 35.2 g/dL (31.6-35.5); Mean Corpuscular Hemoglobin 36.6 pg (28.0-33.3); Monocytes # 0.3 K/mcL (0.0-1.3); Monocytes % 4.1 %; Neutrophils # 5.9 K/mcL (1.6-8.9); Red Blood Count 2.98 M/mcL (4.19-5.50); Red Cell Distribution Width 14.6 % (11.5-14.5)
[2017-04-11 04:57] LABS: Platelet Count 71 K/mcL (140-400)
[2017-04-11 05:05] LABS: Platelet Estimate Decreased (Normal)
[2017-04-11 05:13] LABS: BUN/Creatinine Ratio 37 (6-26); Blood Urea Nitrogen 29 mg/dL (8-26); Carbon Dioxide 21 mEq/L (19-29); Chloride 104 mEq/L (98-109); Glucose 120 mg/dL (70-99); Osmolality,Calculated 283 (280-300); Potassium 3.8 mEq/L (3.5-4.5); Sodium 133 mEq/L (136-145); eGFR For African Americans > 60 (> 60); eGFR For Non-African Americans > 60 (> 60)
[2017-04-11] MEDS: methylPREDNISolone 125 MG/2 ML VIAL IVP SCH ×2 (05:55→18:02)
[2017-04-11] MEDS: Aspirin Enteric Coated 81 MG Tablet PO SCH (08:50)
--- NOTE | 2017-04-11 12:23 | Internal Med Progress Note ---
Date of Encounter: 04/11/17 Time of Encounter: 12:08 - Assessment and plan (1) Hypotension Current Visit: Yes Status: Acute Assessment and plan: The hypotension has been resolved. Blood pressure is stable now. Pulse is typically in the 90s. Qualifiers: Hypotension type: unspecified hypotension type Qualified Code(s): I95.9 - Hypotension, unspecified (2) Urinary retention Current Visit: Yes Status: Acute Assessment and plan: Staff reports that he has about 100 to 150 mL out at a time, with a postvoid residual of 250-300ml. He has no symptoms with this. It sounds like this is his usual pattern at home with frequent urination particularly in the morning, less so in the afternoon.. (3) UTI (urinary tract infection) Current Visit: Yes Status: Ruled-out Assessment and plan: Culture is negative. No acute urinary symptoms. Does have post void urine retention of 250-300 mL. Qualifiers: Urinary tract infection type: acute cystitis Hematuria presence: with hematuria Qualified Code(s): N30.01 - Acute cystitis with hematuria (4) Thrombocytopenia Current Visit: Yes Status: Acute Assessment and plan: Improved but not normal. Stable at 71,000 (5) PAT (paroxysmal atrial tachycardia) Current Visit: Yes Status: Acute Assessment and plan: No documented runs other than 3 beats of 153. All of his recorded strips are normal sinus rhythm with rate up to 90s to 100 or so. (6) Abdominal pain Current Visit: Yes Status: Acute Assessment and plan: No complaints of abdominal pain. Some of his discomfort may be some urinary retention, but improved Qualifiers: Abdominal location: left lower quadrant Qualified Code(s): R10.32 - Left lower quadrant pain (7) COPD exacerbation Current Visit: Yes Status: Acute Assessment and plan: His respirations are much better. Saturations are in the mid 90s. When he is active in physical therapy it drops to the 80s. We will discontinue his continuous pulse oximeter when he is in the room. His IV steroids was decreased from every 8 hours to every 12 hours. (8) Physical deconditioning Current Visit: Yes Status: Acute Assessment and plan: We will resume some physical therapy tomorrow. He is getting stronger. (9) DVT prophylaxis Current Visit: Yes Status: Acute Assessment and plan: Continues with [place] hose and frequent ambulation - Subjective Interval history: Patient thinks that he is doing well. He is sitting up having lunch. He denies any nausea or vomiting. He thinks he is urinating okay and denies any abdominal pain. He has had an occasional cough with some phlegm production but otherwise he thinks his breathing is good. He denies chest pain, palpitations, irregular heartbeat. He is eating well. He feels stronger on his legs. - Constitutional Vitals: Temp Pulse Resp BP Pulse Ox 97.7 F 88 16 109/65 95 04/11/17 11:23 04/11/17 11:23 04/11/17 11:23 04/11/17 11:23 04/11/17 11:23 General appearance: Present: A&O X 3, pleasant, no acute distress, answers questions appropriately - Respiratory Additional comments: Slightly diminished breath sounds but clear. Slight increased expiratory phase. Moving air better today. - Cardiovascular Cardiovascular exam: Present: RRR, +S1, +S2, systolic murmur (1/6 systolic murmur left sternal border. Telemetry rate is typically in the 90s.) - GI/Abdominal GI/Abdominal exam: Present: soft. Absent: tenderness - Extremities Exam Extremities exam: Absent: calf tenderness, pedal edema Internal Medicine: Result - Labs CBC & Chem 7: 04/11/17 04:45 04/11/17 04:45 Labs: Short CBC 04/11/17 Range/Units 04:45 WBC 6.6 (4.3-11.1) K/mcL Hgb 10.9 L (12.9-16.9) g/dL Hct 31.0 L (37.5-50.1) % Plt Count 71 L (140-400) K/mcL Neutrophils # 5.9 (1.6-8.9) K/mcL BMP 04/11/17 04:45 Sodium 133 L Potassium 3.8 Chloride 104 Carbon Dioxide 21 BUN 29 H Creatinine 0.78 Glucose 120 H Calcium 8.0 L Labs have been reviewed. Hemoglobin is stable. Platelet count is stable but low. Sodium slightly diminished. Good renal function. - ABG Interpretation ABG results: PT/INR, D-dimer PT 11.6 Seconds (9.4-12.1) 04/05/17 13:25 - VTE Documentation of Mechanical Device: Graduated compression elastic hosiery Consult Discharge Plan - Plan Referrals: [place],Margaret J, MD [Primary Care Provider] -
[2017-04-11] MEDS: levoFLOXacin 250 MG TABLET PO SCH (18:01)
[2017-04-11] MEDS: Levofloxacin 250 MG/50 ML 250 MG/50 ML BAG IVPB SCH (18:10)
[2017-04-12] MEDS: Ipratropium/Albuterol Neb 3 ML IH SCH ×3 (02:41→17:09)
[2017-04-12] MEDS: methylPREDNISolone 125 MG/2 ML VIAL IVP SCH ×2 (05:04→17:09)
--- NOTE | 2017-04-12 08:27 | Internal Med Progress Note ---
Date of Encounter: 04/12/17 Time of Encounter: 08:26 - Assessment and plan (1) Abdominal pain Current Visit: Yes Status: Acute Assessment and plan: No complaints of abdominal pain. Some of his discomfort may be some urinary retention, but improved Qualifiers: Abdominal location: left lower quadrant Qualified Code(s): R10.32 - Left lower quadrant pain (2) PAT (paroxysmal atrial tachycardia) Current Visit: Yes Status: Acute Assessment and plan: No documented runs other than 3 beats of 153.yesterday All of his recorded strips are normal sinus rhythm with rate up to 90s to 100 or so. metoprolol seems to be helping (3) COPD (chronic obstructive pulmonary disease) Current Visit: No Status: Acute Assessment and plan: he is on oxygen, solumedrol, duonbebs, levaquin. his breathing is better. exam has improved. will continue weaning the solumedrol. Qualifiers: COPD type: unspecified COPD Qualified Code(s): J44.9 - Chronic obstructive pulmonary disease, unspecified (4) UTI (urinary tract infection) Current Visit: Yes Status: Ruled-out Assessment and plan: Culture is negative. No acute urinary symptoms. Does have post void urine retention of 250-300 mL. Qualifiers: Urinary tract infection type: acute cystitis Hematuria presence: with hematuria Qualified Code(s): N30.01 - Acute cystitis with hematuria (5) Thrombocytopenia Current Visit: Yes Status: Acute Assessment and plan: Improved but not normal. Stable at 71,000 (6) Vitamin D deficiency Current Visit: Yes Status: Acute (7) Macular degeneration Current Visit: Yes Status: Acute (8) Osteoporosis Current Visit: Yes Status: Acute Qualifiers: Osteoporosis type: unspecified Presence of current pathological fracture: without current pathological fracture Qualified Code(s): M81.0 - Age-related osteoporosis without current pathological fracture (9) Cancer of left lung Current Visit: No Status: Chronic Assessment and plan: not active problem this admission Qualifiers: Lung location: unspecified part of lung Qualified Code(s): C34.92 - Malignant neoplasm of unspecified part of left bronchus or lung (10) Smoker Current Visit: Yes Status: Acute (11) Fever Current Visit: Yes Status: Acute Assessment and plan: last fever was 04/07 Qualifiers: Fever type: unspecified Qualified Code(s): R50.9 - Fever, unspecified (12) Dizziness Current Visit: Yes Status: Acute (13) DVT prophylaxis Current Visit: Yes Status: Acute Assessment and plan: Continues with CLAYTON hose and frequent ambulation (14) Hypotension Current Visit: Yes Status: Acute Qualifiers: Hypotension type: unspecified hypotension type Qualified Code(s): I95.9 - Hypotension, unspecified (15) Muscular deconditioning Current Visit: Yes Status: Acute (16) COPD exacerbation Current Visit: Yes Status: Acute - Subjective Interval history: he has been improving. sitting on the edge of the bed to eat today. no cp, no palp. no n/v. no abd pain. tele sinus last night. he does need assistance to get to restroom and around still unsteady. - Constitutional Vitals: Temp Pulse Resp BP Pulse Ox 97.5 F L 88 15 128/77 92 04/12/17 07:00 04/12/17 07:00 04/12/17 07:00 04/12/17 07:00 04/12/17 07:00 General appearance: Present: A&O X 3, pleasant, no acute distress, answers questions appropriately - Head Head exam: Present: atraumatic, normocephalic - Neck Neck exam general surgery: Present: supple, trachea midline - Respiratory Respiratory exam: Present: prolonged expiratory phase - Cardiovascular Cardiovascular exam: Present: RRR - GI/Abdominal GI/Abdominal exam: Present: soft, no peritoneal signs. Absent: tenderness - Extremities Exam Extremities exam: Present: warm. Absent: mottling, pedal edema - Skin Skin exam: Present: dry, warm Internal Medicine: Result - Labs CBC & Chem 7: 04/11/17 04:45 04/11/17 04:45 - ABG Interpretation ABG results: PT/INR, D-dimer PT 11.6 Seconds (9.4-12.1) 04/05/17 13:25 - VTE Documentation of Mechanical Device: Graduated compression elastic hosiery Consult Discharge Plan - Plan Referrals: Margaret Dumont MD [Primary Care Provider] -
[2017-04-12] MEDS: Aspirin Enteric Coated 81 MG Tablet PO SCH (10:07)
[2017-04-12] MEDS: levoFLOXacin 250 MG TABLET PO SCH (17:09)
--- NOTE | 2017-04-12 17:25 | Electrocardiograph Report ---
[place] [address] Test Date: 2017-04-07 Pat Name: Robert Garces Department: 2001 Room: 114 Gender: M Curator: Diana : 1930 Requested By: Margaret Dumont Order Number: [id number] Reading MD: Zaid Gonzales MD Measurements Intervals [place] Rate: 103 P: 55 CA: 150 QRS: -58 QRSD: 100 T: 78 QT: 300 QTc: 360 Interpretive Statements SINUS TACHYCARDIA MARKED LEFT AXIS DEVIATION INCOMPLETE RIGHT BUNDLE BRANCH BLOCK Electronically Signed On 04-12-2017 17:23:51 EDT by Zaid Gonzales MD
[2017-04-13] MEDS: Ipratropium/Albuterol Neb 3 ML IH SCH ×3 (01:59→17:25)
[2017-04-13] MEDS: methylPREDNISolone 125 MG/2 ML VIAL IVP SCH ×2 (05:41→17:25)
[2017-04-13] MEDS: Aspirin Enteric Coated 81 MG Tablet PO SCH (09:20)
--- NOTE | 2017-04-13 10:55 | Internal Med Progress Note ---
Date of Encounter: 04/13/17 Time of Encounter: 10:55 - Assessment and plan (1) Abdominal pain Current Visit: Yes Status: Acute Assessment and plan: No complaints of abdominal pain. Some of his discomfort may be some urinary retention, but improved Qualifiers: Abdominal location: left lower quadrant Qualified Code(s): R10.32 - Left lower quadrant pain (2) PAT (paroxysmal atrial tachycardia) Current Visit: Yes Status: Acute Assessment and plan: No documented runs other than 3 beats of 1532 days ago All of his recorded strips are normal sinus rhythm with rate up to 90s to 100 or so. metoprolol seems to be helping (3) COPD (chronic obstructive pulmonary disease) Current Visit: No Status: Acute Assessment and plan: he is on oxygen, solumedrol, duonbebs, levaquin. his breathing is better. exam has improved. will continue weaning the solumedrol. Qualifiers: COPD type: unspecified COPD Qualified Code(s): J44.9 - Chronic obstructive pulmonary disease, unspecified (4) UTI (urinary tract infection) Current Visit: Yes Status: Ruled-out Qualifiers: Urinary tract infection type: acute cystitis Hematuria presence: with hematuria Qualified Code(s): N30.01 - Acute cystitis with hematuria (5) Thrombocytopenia Current Visit: Yes Status: Acute Assessment and plan: Improved but not normal. Stable at 71,000 (6) Vitamin D deficiency Current Visit: Yes Status: Acute (7) Macular degeneration Current Visit: Yes Status: Acute (8) Osteoporosis Current Visit: Yes Status: Acute Qualifiers: Osteoporosis type: unspecified Presence of current pathological fracture: without current pathological fracture Qualified Code(s): M81.0 - Age-related osteoporosis without current pathological fracture (9) Cancer of left lung Current Visit: No Status: Chronic Assessment and plan: not active problem this admission Qualifiers: Lung location: unspecified part of lung Qualified Code(s): C34.92 - Malignant neoplasm of unspecified part of left bronchus or lung (10) Smoker Current Visit: Yes Status: Acute (11) Fever Current Visit: Yes Status: Acute Assessment and plan: last fever was 04/07 Qualifiers: Fever type: unspecified Qualified Code(s): R50.9 - Fever, unspecified (12) Dizziness Current Visit: Yes Status: Acute (13) DVT prophylaxis Current Visit: Yes Status: Acute Assessment and plan: Continues with CLAYTON hose and frequent ambulation (14) Hypotension Current Visit: Yes Status: Acute Assessment and plan: The hypotension has been resolved. Blood pressure is stable now. Pulse is typically in the 90s. Qualifiers: Hypotension type: unspecified hypotension type Qualified Code(s): I95.9 - Hypotension, unspecified (15) Muscular deconditioning Current Visit: Yes Status: Acute Assessment and plan: will consult pt/ot. he is not safe to go home. will eval for swing once cardiac status cleared (16) COPD exacerbation Current Visit: Yes Status: Acute Assessment and plan: His respirations are much better. Saturations are in the mid 90s. When he is active in physical therapy it drops to the 80s. We will discontinue his continuous pulse oximeter when he is in the room. His IV steroids was decreased from every 8 hours to every 12 hours. - Subjective Interval history: he has been improving. sitting on the edge of the bed to eat today. no cp, no palp. no n/v. no abd pain. tele sinus last night. he does need assistance to get to restroom and around still unsteady. pt thinks he will be safe to go home will meet goal - Constitutional Vitals: Temp Pulse Resp BP Pulse Ox 98.0 F 89 16 114/70 96 04/13/17 07:35 04/13/17 07:35 04/13/17 07:35 04/13/17 07:35 04/13/17 07:35 General appearance: Present: A&O X 3, pleasant, no acute distress, answers questions appropriately - Head Head exam: Present: atraumatic, normocephalic - Neck Neck exam general surgery: Present: supple, trachea midline - Respiratory Respiratory exam: Present: prolonged expiratory phase - Cardiovascular Cardiovascular exam: Present: RRR - GI/Abdominal GI/Abdominal exam: Present: normal bowel sounds, soft, no peritoneal signs. Absent: guarding, mass, tenderness - Extremities Exam Extremities exam: Present: warm. Absent: pedal edema - Skin Skin exam: Present: dry, warm Internal Medicine: Result - Labs CBC & Chem 7: 04/11/17 04:45 04/11/17 04:45 - ABG Interpretation ABG results: PT/INR, D-dimer PT 11.6 Seconds (9.4-12.1) 04/05/17 13:25 - VTE Documentation of Mechanical Device: Graduated compression elastic hosiery Consult Discharge Plan - Plan Referrals: Margaret Dumont MD [Primary Care Provider] -
[2017-04-13] MEDS: levoFLOXacin 250 MG TABLET PO SCH (17:25)
[2017-04-14] MEDS: Ipratropium/Albuterol Neb 3 ML IH SCH ×2 (01:30→08:16)
[2017-04-14] MEDS: methylPREDNISolone 125 MG/2 ML VIAL IVP SCH (06:27)
[2017-04-14] MEDS: Aspirin Enteric Coated 81 MG Tablet PO SCH (08:16)
[2017-04-14 11:09] VITALS: BP 102/64
--- NOTE | 2017-04-14 11:11 | Internal Med Progress Note ---
Date of Encounter: 04/14/17 Time of Encounter: 12:30 - Assessment and plan (1) Abdominal pain Status: Acute Qualifiers: Abdominal location: left lower quadrant Qualified Code(s): R10.32 - Left lower quadrant pain (2) PAT (paroxysmal atrial tachycardia) Status: Acute (3) COPD (chronic obstructive pulmonary disease) Status: Acute Qualifiers: COPD type: unspecified COPD Qualified Code(s): J44.9 - Chronic obstructive pulmonary disease, unspecified (4) UTI (urinary tract infection) Status: Ruled-out Qualifiers: Urinary tract infection type: acute cystitis Hematuria presence: with hematuria Qualified Code(s): N30.01 - Acute cystitis with hematuria (5) Thrombocytopenia Status: Acute (6) Vitamin D deficiency Status: Acute (7) Macular degeneration Status: Acute (8) Osteoporosis Status: Acute Qualifiers: Osteoporosis type: unspecified Presence of current pathological fracture: without current pathological fracture Qualified Code(s): M81.0 - Age-related osteoporosis without current pathological fracture (9) Cancer of left lung Status: Chronic Qualifiers: Lung location: unspecified part of lung Qualified Code(s): C34.92 - Malignant neoplasm of unspecified part of left bronchus or lung (10) Smoker Status: Acute (11) Fever Status: Acute Qualifiers: Fever type: unspecified Qualified Code(s): R50.9 - Fever, unspecified (12) Dizziness Status: Acute (13) DVT prophylaxis Status: Acute (14) Hypotension Status: Acute Qualifiers: Hypotension type: unspecified hypotension type Qualified Code(s): I95.9 - Hypotension, unspecified (15) Muscular deconditioning Status: Acute (16) COPD exacerbation Status: Acute Assessment and plan: will manager exchange to po prednisone, anticipate d/c tomorrow. will d/c levaquin. will send home with oxygen. continue the nebs at home - Subjective Interval history: he has been improving. sitting on the edge of the bed to eat today. no cp, no palp. no n/v. no abd pain. tele sinus last night. he does need assistance to get to restroom and around still unsteady. pt thinks he will be safe to go home will meet goal - Constitutional Vitals: Temp Pulse Resp BP Pulse Ox 97.5 F L 83 16 102/64 96 04/14/17 11:00 04/14/17 11:00 04/14/17 11:00 04/14/17 11:00 04/14/17 11:00 General appearance: Present: A&O X 3, pleasant, no acute distress, answers questions appropriately Internal Medicine: Result - Labs CBC & Chem 7: 04/11/17 04:45 04/11/17 04:45 - ABG Interpretation ABG results: PT/INR, D-dimer PT 11.6 Seconds (9.4-12.1) 04/05/17 13:25 - VTE Documentation of Mechanical Device: Graduated compression elastic hosiery Consult Discharge Plan - Plan Instructions: Metoprolol (By mouth), Chronic Obstructive Pulmonary Disease (DC) Additional Instructions: Carla has an appt at the same time as you. You will also need to follow up with hematology/oncology for the thrombocytopenia, low platelets. Referrals: Margaret Dumont MD [Primary Care Provider] - 04/20/17 1:00 pm Prescriptions: Ipratropium/Albuterol Neb [Duoneb] 3 ml IH Q6HR PRN #120 inhsol PRN Reason: Shortness Of Breath/Wheezing Metoprolol [Lopressor] 25 mg PO BID 30 Days #60 tablet
--- NOTE | 2017-04-14 11:14 | Discharge Summary ---
Date of Encounter: 04/15/17 Time of Encounter: 12:32 - Discharge Diagnosis (1) COPD exacerbation Priority: Primary Status: Acute Comments: he had solumedrol, o2, duonebs,levaquin. he did day take a long time to clear (2) COPD (chronic obstructive pulmonary disease) Priority: Secondary Status: Acute Comments: discussed need to quit smoking Qualifiers: COPD type: unspecified COPD Qualified Code(s): J44.9 - Chronic obstructive pulmonary disease, unspecified (3) Abdominal pain Priority: Secondary Status: Acute Comments: he had a ct scan that did not show acute dx. the pain resolved. he was tolerating po Qualifiers: Abdominal location: left lower quadrant Qualified Code(s): R10.32 - Left lower quadrant pain (4) PAT (paroxysmal atrial tachycardia) Priority: Secondary Status: Acute Comments: he had an echo. the metoprolol helped control his rate. he was no symptomatic with any of these episodes. (5) Thrombocytopenia Priority: Secondary Status: Acute Comments: discussed he needs to follow up with hematology oncology as an outpatient. he has an appt scheduled (6) Vitamin D deficiency Priority: Secondary Status: Acute (7) Macular degeneration Priority: Secondary Status: Acute (8) Osteoporosis Priority: Secondary Status: Acute Qualifiers: Osteoporosis type: unspecified Presence of current pathological fracture: without current pathological fracture Qualified Code(s): M81.0 - Age-related osteoporosis without current pathological fracture (9) Cancer of left lung Priority: Secondary Status: Chronic Comments: not acute this admission Qualifiers: Lung location: unspecified part of lung Qualified Code(s): C34.92 - Malignant neoplasm of unspecified part of left bronchus or lung (10) Smoker Priority: Secondary Status: Acute Comments: discussed need to quit smoking. (11) Fever Priority: Secondary Status: Acute Comments: resolved after levaquin. urine and blood cultures were negative. likely due to the copd exacerbation Qualifiers: Fever type: unspecified Qualified Code(s): R50.9 - Fever, unspecified (12) Dizziness Priority: Secondary Status: Acute Comments: likely due to the hypotension. did resolve with ivf. (13) DVT prophylaxis Priority: Secondary Status: Acute Comments: devin hose and ambulation. due to thrombocytopenia did not get lovenox (14) Hypotension Priority: Secondary Status: Acute Comments: due to dehydration resolved with ivf Qualifiers: Hypotension type: unspecified hypotension type Qualified Code(s): I95.9 - Hypotension, unspecified (15) Muscular deconditioning Priority: Secondary Status: Acute Comments: he was deconditioned from the copd exacerbation and pat. he did get pt and ot and was d/c when he met goals. insurance was contacted last week for a swing bed approval, but never got approval (16) Hypokalemia Priority: Secondary Status: Acute Comments: given po potassium and resolved (17) COPD (chronic obstructive pulmonary disease) with acute bronchitis Priority: Secondary Status: Acute Comments: he was on solumedrol, nebs, o2, levaquin. he has chronic copd and his sob go worse and fatigue - Discharge Medications Prescriptions: Ipratropium/Albuterol Neb [Duoneb] 3 ml IH Q6HR PRN #120 inhsol PRN Reason: Shortness Of Breath/Wheezing Metoprolol [Lopressor] 25 mg PO BID 30 Days #60 tablet Home Medications: Aspirin Enteric Coated [Aspirin EC] 81 mg PO DAILY 04/30/15 [History] Simvastatin [Zocor] 40 mg PO HS 04/30/15 [History] Albuterol Neb [Proventil Neb] 2.5 mg IH Q4HR PRN 04/05/17 [History] Ipratropium/Albuterol Neb [Duoneb] 3 ml IH Q6HR PRN #120 inhsol 04/14/17 [Rx] Metoprolol [Lopressor] 25 mg PO BID 30 Days #60 tablet 04/14/17 [Rx] Allergies/Adverse Reactions: 3 Allergy/AdvReac Type Severity Reaction Status Date / Time No Known Allergies Allergy Verified 07/28/16 11:03 Date of admission: 04/06/17 15:53 Primary care physician: Margaret Dumont, Consults: 04/09/17 09:42 Consult to Physical Therapy [CONS] Routine Comment: Evaluate, develop and implement POC Reason for Consult: obinnaal 04/09/17 09:43 OT [Consult to Occupational Therapy] [CONS] Routine Comment: Evaluate, develop and implement POC Reason for Consult: eval - Patient Status Disposition: Home, Self-Care Condition: Fair Functional capacity at discharge: uses cane/walker Overall status at discharge: patient is progressing back to baseline - Discharge Instructions Instructions: Metoprolol (By mouth), Chronic Obstructive Pulmonary Disease (DC) Follow Up With: Margaret Dumont MD [Primary Care Provider] - 04/20/17 1:00 pm Additional Instructions: Carla has an appt at the same time as you. You will also need to follow up with hematology/oncology for the thrombocytopenia, low platelets. - Diet and Activity Activity: increase activity as tolerated Diet: low fat, low cholesterol Interval History: he presented from the ER for weakness and dizziness and a fever. he was found to have a copd exacerbation, PAT, and decondtioning. he did develop abd pain and had a ct scan that did not show acute disease. his pain resolved. his copd was treated with solumedrol, o2, levaquin, nebs. his did have several episodes of PAT. his was put on metoprolol for this and it controlled the symptoms. Hospital course: Mr. Garces is a 87 year old male - Time Spent with Patient Total time spent providing and/or coordinating discharge services: - Constitutional Vitals: Temp Pulse Resp BP Pulse Ox 97.5 F L 83 16 102/64 96 04/14/17 11:00 04/14/17 11:00 04/14/17 11:00 04/14/17 11:00 04/14/17 11:00 General appearance: Present: A&O X 3, pleasant, no acute distress, answers questions appropriately - Head Head exam: Present: atraumatic, normocephalic - Respiratory Respiratory exam: Present: prolonged expiratory phase. Absent: wheezes - Cardiovascular Cardiovascular exam: Present: RRR. Absent: systolic murmur - GI/Abdominal GI/Abdominal exam: Present: mass, normal bowel sounds, soft, no peritoneal signs. Absent: guarding, tenderness - Extremities Exam Extremities exam: Present: normal capillary refill, warm. Absent: pedal edema - Skin Skin exam: Present: dry, warm - VTE Documentation of Mechanical Device: Graduated compression elastic hosiery
== END 2017-04-14 13:40 | disposition home or self-care (01) | DRG 191 ==
LOC: INPGRE 12:37 → EMEROOGRE 12:37 → INPGRE 17:04
PROVIDERS: ADMIT Family Medicine; ATTEND Family Medicine